=== PATIENT | male | born 1970 | race Caucasian/White ===

== ENCOUNTER 2018-03-29 15:27 | Emergency (ER) | payer OTHER, BC ==
[~2018-03-29 15:27] MED LIST: FLUT16SP2 BOTHNARES
[2018-03-29 15:34] VITALS: BP 143/100
[2018-03-29] MEDS ORDERED: acetaminophen 325mg tablet PO ONE (16:50)
[2018-03-29] MEDS ORDERED: HYDR-4353 PO (16:52)
[2018-03-29] MEDS ORDERED: ONDA4TAB9 PO (16:52)
== END 2018-03-29 17:52 | disposition home or self-care (01) ==
LOC: ER 15:27
DX: S63.602A Unspecified sprain of left thumb, initial encounter (principal); S50.02XA Contusion of left elbow, initial encounter; M23.91 Unspecified internal derangement of right knee; Z88.6 Allergy status to analgesic agent; Z79.899 Other long term (current) drug therapy; Y04.8XXA Assault by other bodily force, initial encounter; Y93.89 Activity, other specified; Y92.89 Other specified places as the place of occurrence of the external cause; Y99.8 Other external cause status
CPT/HCPCS: 29125; 29505; 73080; 73130; 73564; 99284

== ENCOUNTER 2020-03-18 13:00 | Emergency (ER) | payer BC, OTHER ==
[~2020-03-18] VITALS: Ht 182.9 cm; Wt 100.0 kg
[2020-03-18] MEDS ORDERED: normal saline 1000ML IV soln IVB ONE (13:10)
[2020-03-18] MEDS ORDERED: HYDROmorphone 1 mg/ml syringe IV ONE (13:10)
[2020-03-18] MEDS ORDERED: ondansetron/PF 4mg/2ml inj IV ONE ×2 (13:10→14:40)
--- NOTE | 2020-03-18 13:32 | NUR ---
Meds given to be scanned momentarily
[2020-03-18 13:38] LABS: BASOPHILS # (AUTO) 0.1 X10'3 (0-0.2); BASOPHILS % (AUTO) 0.5 % (0-1); EOSINOPHILS % (AUTO) 0.3 % (0-6); HEMOGLOBIN 13.8 g/dl (14.0-17.9); LYMPHOCYTES # (AUTO) 3.6 X10'3 (1.1-4.8); LYMPHOCYTES % (AUTO) 31.8 % (21-51); MEAN CORPUSCULAR HEMOGLOBIN 32.3 PG (27.0-31.0); MEAN CORPUSCULAR HGB CONC 34.6 g/dL (33.0-36.5); MEAN CORPUSCULAR VOLUME 93.4 FL (78-98); MEAN PLATELET VOLUME 7.9 FL (7.4-10.4); MONOCYTES % (AUTO) 8.6 % (2-12); NEUTROPHILS # (AUTO) 6.7 X10'3 (1.8-7.7); NEUTROPHILS % (AUTO) 58.8 % (42-75); PLATELET COUNT 356 X10'3 (140-440); RED BLOOD COUNT 4.28 X10'6 (4.70-6.10); RED CELL DISTRIBUTION WIDTH 13.4 % (11.5-14.5); WHITE BLOOD COUNT 11.4 X10'3 (4.5-11.0)
[2020-03-18 13:45] LABS: ALANINE AMINOTRANSFERASE 41 U/L (12-78); ALBUMIN 4.6 G/DL (3.4-5.0); ALBUMIN/GLOBULIN RATIO 1.2 (1.1-1.5); ALKALINE PHOSPHATASE 75 IU/L (46-116); ANION GAP 15 (8-16); ASPARTATE AMINO TRANSFERASE 31 U/L (10-37); BLOOD UREA NITROGEN 22 MG/DL (7-18); BUN/CREATININE RATIO 17.1 (5.4-32.0); CALCIUM 9.5 MG/DL (8.5-10.1); CHLORIDE 102 MMOL/L (99-107); CREATINE KINASE 394 U/L (39-308); CREATININE 1.29 MG/DL (0.60-1.10); GLUCOSE 93 MG/DL (70-104); POTASSIUM 3.9 MMOL/L (3.5-5.1); SODIUM 139 MMOL/L (135-145); TOTAL CARBON DIOXIDE 22.1 MMOL/L (24-32); TOTAL PROTEIN 8.3 G/DL (6.4-8.2); eGFR 59 ML/MIN
[2020-03-18] MEDS ORDERED: HYDR-4353 PO (14:33)
--- NOTE | 2020-03-18 14:38 | NUR ---
disccused pt's increasing pain and prep for splint w/ [facility] january; new order for dilaudid and zofran received.
[2020-03-18] MEDS ORDERED: HYDROmorphone/PF 0.2 MG/ML SYRINGE IV ONE (14:40)
[2020-03-18 15:06] VITALS: BP 144/84
== END 2020-03-18 16:12 | disposition home or self-care (01) ==
LOC: ER 13:00
DX: S82.62XA Displaced fracture of lateral malleolus of left fibula, initial encounter for closed fracture (principal); M25.512 Pain in left shoulder; W31.89XA Contact with other specified machinery, initial encounter; Y93.89 Activity, other specified; Y92.89 Other specified places as the place of occurrence of the external cause; Y99.8 Other external cause status
CPT/HCPCS: 29505; 36415; 73080; 73090; 73590; 73610; 73630; 80053; 82550; 85025; 85610; 96374; 96375; 96376; 99285; J1170; J2405; J7030

== ENCOUNTER 2020-03-19 10:37 | Emergency (ER) | payer BC ==
[~2020-03-19] VITALS: Ht 182.9 cm; Wt 100.0 kg
[~2020-03-19 10:37] MED LIST changes: +HYDR-4353 PO
[2020-03-19 10:49] VITALS: BP 126/78
== END 2020-03-19 11:51 | disposition home or self-care (01) ==
LOC: ER 10:38
DX: S82.61XP Displaced fracture of lateral malleolus of right fibula, subsequent encounter for closed fracture with malunion (principal); Z98.890 Other specified postprocedural states; Z88.5 Allergy status to narcotic agent; Z88.8 Allergy status to other drugs, medicaments and biological substances; Z79.899 Other long term (current) drug therapy; X58.XXXD Exposure to other specified factors, subsequent encounter
CPT/HCPCS: 99281